=== PATIENT | female | born 1955 | race Two or more races ===

== ENCOUNTER 2020-11-15 14:10 | Emergency (ER) | payer OTHER ==
[~2020-11-15] VITALS: Ht 157.5 cm; Wt 65.3 kg
[~2020-11-15 14:10] MED LIST: NO
[2020-11-15] MEDS ORDERED: ONDANSETRON ODT4 MG SL (20:21)
[2020-11-15] MEDS ORDERED: INTESTINEX680 M1 PO (20:21)
[2020-11-15] MEDS ORDERED: PEPCID AC20 MG PO (20:21)
[2020-11-15] MEDS ORDERED: LEVSIN/SL0.125 MG SL (20:21)
== END 2020-11-15 20:41 | disposition home or self-care (01) ==
LOC: ER 14:10
DX: K52.9 Noninfective gastroenteritis and colitis, unspecified (principal); Z03.818 Encounter for observation for suspected exposure to other biological agents ruled out

== ENCOUNTER 2021-03-12 17:12 | Emergency (ER) | payer OTHER ==
[~2021-03-12] VITALS: Ht 160 cm; Wt 59.0 kg
[~2021-03-12 17:12] MED LIST changes: +INTESTINEX680 M1 PO; +LEVSIN/SL0.125 MG SL; +ONDANSETRON ODT4 MG SL; +PEPCID AC20 MG PO
== END 2021-03-12 22:11 | disposition home or self-care (01) ==
LOC: ER 17:12
DX: R51.9 Headache, unspecified (principal); I10 Essential (primary) hypertension

== ENCOUNTER 2022-02-06 20:59 | Emergency (ER) | payer OTHER ==
[~2022-02-06] VITALS: Ht 157.5 cm; Wt 69.9 kg
[2022-02-06] MEDS ORDERED: CRESTOR20 MG PO (21:17)
== END 2022-02-07 00:19 | disposition home or self-care (01) ==
LOC: ER 20:59
DX: S93.402A Sprain of unspecified ligament of left ankle, initial encounter (principal); W18.39XA Other fall on same level, initial encounter; Y93.9 Activity, unspecified; Y92.89 Other specified places as the place of occurrence of the external cause; Y99.8 Other external cause status

== ENCOUNTER 2024-12-31 07:09 | Emergency (ER) | payer OTHER ==
[~2024-12-31] VITALS: Ht 154.9 cm; Wt 58.5 kg
[~2024-12-31 07:09] MED LIST changes: +CRESTOR20 MG PO
[2024-12-31] MEDS ORDERED: DEXAMETHASONE SODIUM PHOSPHATE 4 MG/ML VIAL IM STA (08:59)
[2024-12-31] MEDS ORDERED: DIPHENHYDRAMINE HCL 50 MG/ML VIAL 1ML IM STA (08:59)
[2024-12-31] MEDS ORDERED: DIPHENHYDRAMINE HCL 50 MG/ML VIAL 1ML ONE (09:07)
[2024-12-31] MEDS ORDERED: DEXAMETHASONE SODIUM PHOSPHATE 4 MG/ML VIAL ONE (09:07)
[2024-12-31 09:27] LABS: HEMATOCRIT 41.6 % (36.0-45.00); HEMOGLOBIN 13.9 g/dL (12.0-15.00); MEAN CORPUSCULAR HEMOGLOBIN 29.4 pg (27.00-32.0); MEAN CORPUSCULAR HGB CONC 33.4 g/dl (32.0-36.0); PLATELET COUNT 278 K/uL (150-450); RED BLOOD COUNT 4.73 M/uL (4.00-6.00); RED CELL DISTRIBUTION WIDTH 14.3 % (11.5-14.5)
== END 2024-12-31 10:41 | disposition home or self-care (01) ==
LOC: ER 07:11
PROVIDERS: General Practice
DX: R21 Rash and other nonspecific skin eruption (principal); I10 Essential (primary) hypertension
CPT/HCPCS: 36415; 96372; 99282; J1100; J1200

== ENCOUNTER 2025-06-22 07:00 | Day surgery (SDC) | payer OTHER ==
[2025-06-21 11:50] VITALS: BP 141/78
[~2025-06-22] VITALS: Ht 157.5 cm; Wt 61.2 kg
[~2025-06-22 07:00] MED LIST changes: +ANASTROZOLE1 MG PO; +IRBESARTAN75 MG PO
[2025-06-22] MEDS ORDERED: CEFAZOLIN SODIUM 1,000 MG VIAL ONE (11:15)
[2025-06-22] MEDS ORDERED: CEFAZOLIN SODIUM 1,000 MG VIAL IV ONE (13:30)
[2025-06-22] MEDS ORDERED: MORPHINE SULFATE 4 MG/ML VIAL IV ONE ×2 (17:10→17:40)
== END 2025-06-22 18:15 | disposition home or self-care (01) ==
LOC: CIR.AMB 07:00
PROVIDERS: ATTEND Surgery
DX: C50.312 Malignant neoplasm of lower-inner quadrant of left female breast (principal); D48.61 Neoplasm of uncertain behavior of right breast; R59.0 Localized enlarged lymph nodes; R92.1 Mammographic calcification found on diagnostic imaging of breast; N63.10 Unspecified lump in the right breast, unspecified quadrant